=== PATIENT | male | born 1960 | race African-American/Black ===

== ENCOUNTER 2019-10-05 14:42 | Emergency (ER) | payer MEDICAID ==
[~2019-10-05] VITALS: Ht 175.3 cm; Wt 102.0 kg
[2019-10-05] MEDS ORDERED: LIDOCAINE HCL/PF 1% 10 MG/ML 5ML VIAL IJ ONE (16:00)
[2019-10-05] MEDS ORDERED: BACITRACIN ZINC OINT UDPKT TOP ONE (16:00)
[2019-10-05] MEDS ORDERED: HYDROCODONE/ACETAMINOPHEN 5/325MG TABLET PO ONE (16:00)
[2019-10-05] MEDS ORDERED: TETANUS, DIPHTHERIA, PERTUSSIS VAC/PF 0.5ML (>7YR OLD) IM ONE (16:15)
[2019-10-05] MEDS ORDERED: CEPHALEXIN 250MG CAPSULE PO ONE (16:15)
[2019-10-05 17:36] VITALS: BP 133/70
== END 2019-10-05 17:37 | disposition home or self-care (01) ==
LOC: ER 14:42
DX: S61.011A Laceration without foreign body of right thumb without damage to nail, initial encounter (principal); E11.9 Type 2 diabetes mellitus without complications; W31.89XA Contact with other specified machinery, initial encounter; Y93.89 Activity, other specified; Y92.89 Other specified places as the place of occurrence of the external cause; Y99.8 Other external cause status
CPT/HCPCS: 12002; 73140; 90471; 90715; 99284; J3490

== ENCOUNTER 2019-10-07 09:44 | Emergency (ER) | payer MEDICAID ==
[~2019-10-07] VITALS: Ht 175.3 cm; Wt 100.0 kg
[2019-10-07 09:49] VITALS: BP 146/83
[2019-10-07] MEDS ORDERED: BACITRACIN ZINC OINT UDPKT TOP ONE (10:30)
== END 2019-10-07 11:21 | disposition home or self-care (01) ==
LOC: ER 09:44
DX: Z48.00 Encounter for change or removal of nonsurgical wound dressing (principal); E11.9 Type 2 diabetes mellitus without complications
CPT/HCPCS: 99283

== ENCOUNTER 2019-10-15 17:10 | Emergency (ER) | payer MEDICAID ==
[~2019-10-15] VITALS: Ht 175.3 cm; Wt 102.7 kg
[2019-10-15 18:31] VITALS: BP 127/97
== END 2019-10-15 19:15 | disposition home or self-care (01) ==
LOC: ER 17:10
DX: S61.411D Laceration without foreign body of right hand, subsequent encounter (principal); X58.XXXD Exposure to other specified factors, subsequent encounter; E11.9 Type 2 diabetes mellitus without complications; Z98.890 Other specified postprocedural states
CPT/HCPCS: 99281

== ENCOUNTER 2020-08-18 09:53 | Emergency (ER) | payer MEDICAID ==
[~2020-08-18] VITALS: Ht 175.3 cm; Wt 100.0 kg
[2020-08-18] MEDS ORDERED: MAGNESIUM/ALUMINUM HYDROXIDE/SIMETHICONE 30ML UDC PO STA (10:30)
[2020-08-18] MEDS ORDERED: KETOROLAC 15MG/ML VIAL IV ONE (10:30)
[2020-08-18 11:00] LABS: BASOPHILS % 0.9 % (0.0-2.0); EOSINOPHILS % 1.5 % (0.0-5.0); HEMATOCRIT. 34.8 % (42.0-52.0); LYMPHOCYTES % 28.5 % (20.0-50.0); MEAN CORPUSCULAR HEMOGLOBIN 29.2 pg (28.0-32.0); MEAN CORPUSCULAR VOLUME 84.4 fL (80.0-94.0); MEAN PLATELET VOLUME 8.7 fl (7.4-10.4); MONOCYTES % 8.5 % (2.0-8.0); NEUTROPHILS % 60.6 % (40.0-76.0); PLATELET 230 x1000/uL (130-400); RED BLOOD CELL COUNT 4.12 mill/uL (4.7-6.1); RED CELL DISTRIBUTION WIDTH 14.4 % (11.6-14.6)
[2020-08-18 11:10] LABS: CHLORIDE 108 mEq/L (98-107)
[2020-08-18 14:26] VITALS: BP 128/72
== END 2020-08-18 14:30 | disposition home or self-care (01) ==
LOC: ER 09:53
DX: E11.9 Type 2 diabetes mellitus without complications (principal); F12.10 Cannabis abuse, uncomplicated; R10.9 Unspecified abdominal pain
CPT/HCPCS: 36415; 74176; 80053; 83690; 85025; 96374; 99284; J1885